=== PATIENT | female | born 1980 | race Caucasian/White ===

== ENCOUNTER 2023-01-05 17:04 | Emergency (ER) | payer BC ==
[~2023-01-05] VITALS: Ht 160 cm; Wt 131.5 kg
[2023-01-05] MEDS ORDERED: VYVANSE10 MG PO (17:26)
[2023-01-05] MEDS ORDERED: ZESTRIL10 MG PO (17:26)
== END 2023-01-05 20:39 | disposition home or self-care (01) ==
LOC: ED 17:04
DX: R42 Dizziness and giddiness (principal); R41.0 Disorientation, unspecified; R11.0 Nausea; T40.715A Adverse effect of cannabis, initial encounter; I10 Essential (primary) hypertension; Z88.0 Allergy status to penicillin; Z88.8 Allergy status to other drugs, medicaments and biological substances; Z88.5 Allergy status to narcotic agent; Z88.1 Allergy status to other antibiotic agents; Z79.899 Other long term (current) drug therapy
CPT/HCPCS: 99283; J7121